=== PATIENT | female | born 1990 | race Caucasian/White ===

== ENCOUNTER → 2017-11-22 | Outpatient (REF) | payer BC ==
[2017-11-22 13:29] LABS: FOLLICLE STIMULATING HORMONE 6.1 mIU/mL; LUTEINIZING HORMONE 8.5 mIU/mL
[2017-11-22 13:35] LABS: FREE T4 0.97 NG/DL (0.76-1.46)
[2017-11-22 15:34] LABS: CHLAMYDIA DNA AMPLIFICATION NEGATIVE (NEGATIVE); GC DNA AMPLIFICATION NEGATIVE (NEGATIVE)
[2017-11-24 00:07] LABS: TESTOSTERONE FREE (DIRECT) 4.9 pg/mL (0.0-4.2)
== END ==
LOC: M SFHCWAGY 10:02
DX: Z12.4 Encounter for screening for malignant neoplasm of cervix (principal); N92.6 Irregular menstruation, unspecified; L68.0 Hirsutism; R53.83 Other fatigue; E66.01 Morbid (severe) obesity due to excess calories; Z11.3 Encounter for screening for infections with a predominantly sexual mode of transmission
CPT/HCPCS: 83001

== ENCOUNTER → 2019-03-14 | Outpatient (REF) | payer OTHER | LOC: M SFHCLERA 19:42 | PROVIDERS: ATTEND Nurse Practitioner Family | DX: J02.9 Acute pharyngitis, unspecified (principal) ==

== ENCOUNTER → 2019-10-10 | Outpatient (CLI) | payer OTHER ==
[2019-10-10] VITALS (8 sets, daily range): BP systolic 130–141; BP diastolic 64–90
[~2019-10-10] VITALS: Ht 160 cm; Wt 109.7 kg
[~2019-10-10] MED LIST: ACETAMINOPHEN TAB 650MG DOSE (2X325MG) PO ONE; diphenhydrAMINE 50 MG CAP PO ONE
== END ==
LOC: M INFU 08:36
PROVIDERS: ATTEND Internal Medicine Medical Oncology
DX: D59.5 Paroxysmal nocturnal hemoglobinuria [Marchiafava-Micheli] (principal)
CPT/HCPCS: 36430; P9016

== ENCOUNTER 2019-10-20 11:15 | Outpatient (CLI) | payer OTHER ==
[~2019-10-20] VITALS: Ht 162.6 cm; Wt 109.7 kg
[~2019-10-20 11:15] MED LIST changes: -ACETAMINOPHEN TAB 650MG DOSE (2X325MG) PO ONE; +ACETAMINOPHEN TAB 650MG DOSE (2X325MG) PO SCH; +diphenhydrAMINE 25 MG CAP PO SCH; -diphenhydrAMINE 50 MG CAP PO ONE
[2019-10-20 11:59] VITALS: BP 130/76
[2019-10-20 12:32] VITALS: BP 130/76
[2019-10-20 12:50] VITALS: BP 110/62
[2019-10-20 14:00] VITALS: BP 136/69
[2019-10-20 14:30] VITALS: BP 128/60
== END 2019-10-20 14:50 | disposition home or self-care (01) ==
LOC: M INFU 11:15
PROVIDERS: ATTEND Internal Medicine Medical Oncology
DX: D59.5 Paroxysmal nocturnal hemoglobinuria [Marchiafava-Micheli] (principal)
CPT/HCPCS: 36430; P9016

== ENCOUNTER 2019-10-28 11:38 | Outpatient (CLI) | payer OTHER ==
[2019-10-28] VITALS (9 sets, daily range): BP systolic 115–140; BP diastolic 58–79
[~2019-10-28] VITALS: Ht 162.6 cm; Wt 112.9 kg
[2019-10-29] MEDS ORDERED: JADE1TAB2 PO (16:22)
== END 2019-10-28 16:20 | disposition home or self-care (01) ==
LOC: M INFU 11:38
PROVIDERS: ATTEND Internal Medicine Medical Oncology
DX: D59.9 Acquired hemolytic anemia, unspecified (principal); D64.9 Anemia, unspecified
CPT/HCPCS: 36430; P9016

== ENCOUNTER 2019-11-10 14:03 | Outpatient (CLI) | payer OTHER ==
[~2019-11-10] VITALS: Ht 162.6 cm; Wt 112.9 kg
[~2019-11-10 14:03] MED LIST changes: +JADE1TAB2 PO
[2019-11-10 15:25] VITALS: BP 157/91
[2019-11-10 15:45] VITALS: BP 140/74
[2019-11-10 16:45] VITALS: BP 133/78
[2019-11-10 17:27] VITALS: BP 131/84
== END 2019-11-10 17:30 | disposition home or self-care (01) ==
LOC: M INFU 14:03
PROVIDERS: ATTEND Internal Medicine Medical Oncology
DX: D69.6 Thrombocytopenia, unspecified (principal)
CPT/HCPCS: 36430; P9016

== ENCOUNTER 2019-11-14 15:16 | Emergency (ER) | payer MEDICAID, OTHER ==
[~2019-11-14] VITALS: Ht 160 cm; Wt 111.6 kg
[~2019-11-14 15:16] MED LIST changes: -ACETAMINOPHEN TAB 650MG DOSE (2X325MG) PO SCH; -diphenhydrAMINE 25 MG CAP PO SCH
[2019-11-14 17:54] LABS: EOS % 0.3 % (0.0-3.0); HEMATOCRIT 25.2 % (36.0-47.0); HEMOGLOBIN 8.5 g/dl (12.0-15.5); LYMPH # 1.3 10^3/uL (1.5-5.0); LYMPH % 41.5 % (24.0-44.0); MEAN CORPUSCULAR HEMOGLOBIN 32.3 pg (27.0-33.0); MEAN CORPUSCULAR HGB CONC 33.7 g/dl (32.0-36.5); MEAN CORPUSCULAR VOLUME 95.8 fl (80.0-96.0); MONO # 0.1 10^3/uL (0.0-0.8); MONO % 3.3 % (0.0-5.0); NEUTROPHILS # 1.6 10^3/uL (1.5-8.5); NEUTROPHILS % 53.9 % (36.0-66.0); RED BLOOD COUNT 2.63 10^6/uL (4.00-5.40)
[2019-11-14 18:05] LABS: INR 1.1; PROTHROMBIN TIME 13.9 SECONDS (11.8-14.0)
[2019-11-14 18:06] LABS: PARTIAL THROMBOPLASTIN TIME 27.6 SECONDS (25.0-38.4)
[2019-11-14 18:08] LABS: D-DIMER QUANT 716.73 ng/ml (<500)
[2019-11-14 18:19] LABS: ALBUMIN 3.9 GM/DL (3.2-5.2); BILIRUBIN,DIRECT 0.3 MG/DL (0.0-0.2); BILIRUBIN,TOTAL 1.1 MG/DL (0.2-1.0); C REACTIVE PROTEIN QUANTITATIV 1.65 MG/DL (0.00-0.30); TOTAL PROTEIN 7.4 GM/DL (6.4-8.2)
[2019-11-14 18:22] LABS: ERYTHROCYTE SEDIMENTATION RATE 61 mm/hr (0-20); PLATELET COUNT, AUTOMATED 29 10^3/uL (150-450)
--- NOTE | 2019-11-14 18:22 | REPVR ---
PROCEDURE INFORMATION: Exam: US Duplex Left Upper Extremity Veins, Limited Exam date and time: 11/14/2019 5:42 PM Age: 29 years old Clinical indication: Pain; Arm, upper; Left; Additional info: Left arm pain after transfusion TECHNIQUE: Imaging protocol: Real-time Duplex ultrasound of the Left Upper Extremity with 2-D burnham scale, color Doppler flow and spectral waveform analysis with image documentation. Limited exam focused on the left upper extremity veins. COMPARISON: No relevant prior studies available. FINDINGS: Left deep veins: Unremarkable. Axillary and brachial veins are patent throughout without thrombus. Normal Doppler waveforms. Normal compressibility and/or augmentation response. Visualized internal jugular and subclavian veins are patent. Left superficial veins: Unremarkable. Visualized cephalic and basilic veins are patent without thrombus. Soft tissues: Unremarkable. IMPRESSION: No acute findings. No evidence of deep vein thrombosis. Electronically signed by: Renate Nolen On 11/14/2019 18:22:27 PM
[2019-11-14] MEDS ORDERED: ISOVUE-370 76% 100ML VIAL (Q9967) As Ordered ONE (18:52)
--- NOTE | 2019-11-14 19:52 | REPVR ---
PROCEDURE INFORMATION: Exam: CT Angiography Chest With Contrast Exam date and time: 11/14/2019 7:32 PM Age: 29 years old Clinical indication: Pain; Other: Chest tightness; Additional info: Left arm pain/chest tightness TECHNIQUE: Imaging protocol: Computed tomographic angiography of the chest with intravenous contrast. 3D rendering: MIP and/or 3D reconstructed images were created by the technologist. Radiation optimization: All CT scans at this facility use at least one of these dose optimization techniques: automated exposure control; mA and/or kV adjustment per patient size (includes targeted exams where dose is matched to clinical indication); or iterative reconstruction. Contrast material: ISOVUE 370; Contrast volume: 75 ml; Contrast route: IV; COMPARISON: No relevant prior studies available. FINDINGS: Pulmonary arteries: Normal. No pulmonary emboli. Aorta: Unremarkable. No aortic aneurysm. No aortic dissection. Lungs: Thin linear pleural based opacity apical segment left upper lobe. Thin linear reticular opacity right middle lobe. Both these opacities have the appearance of scarring Pleural space: Unremarkable. No pneumothorax. No pleural effusion. Heart: Unremarkable. No cardiomegaly. No pericardial effusion. Liver: The liver is low in density. Lymph nodes: Unremarkable. No enlarged lymph nodes. Bones/joints: Unremarkable. No acute fracture. Soft tissues: Unremarkable. IMPRESSION: 1. No acute pulmonary embolism. No aortic aneurysm or dissection. 2. Hepatic steatosis the Electronically signed by: Renate Nolen On 11/14/2019 19:52:02 PM
[2019-11-14 21:28] VITALS: BP 135/81
== END 2019-11-14 21:32 | disposition home or self-care (01) ==
LOC: M ED 15:16
DX: M79.602 Pain in left arm (principal); K76.0 Fatty (change of) liver, not elsewhere classified; R00.2 Palpitations; R51 Headache; D59.5 Paroxysmal nocturnal hemoglobinuria [Marchiafava-Micheli]
CPT/HCPCS: 36415; 71275; 80047; 80076; 83605; 84702; 85025; 85049; 85055; 85379; 85610; 85652; 85730; 86140; 93971; 99284; Q9967

== ENCOUNTER 2019-11-18 09:51 | Outpatient (CLI) | payer OTHER ==
[~2019-11-18] VITALS: Ht 161.9 cm; Wt 114.1 kg
[2019-11-18] VITALS (8 sets, daily range): BP systolic 118–142; BP diastolic 65–77
[~2019-11-18 09:51] MED LIST changes: +ACETAMINOPHEN TAB 650MG DOSE (2X325MG) PO SCH; +diphenhydrAMINE 25 MG CAP PO SCH
== END 2019-11-18 14:05 | disposition home or self-care (01) ==
LOC: M INFU 09:51
PROVIDERS: ATTEND Internal Medicine Hematology
DX: D59.9 Acquired hemolytic anemia, unspecified (principal)
CPT/HCPCS: 36430; P9016

== ENCOUNTER 2019-11-27 13:45 | Outpatient (CLI) | payer OTHER ==
[~2019-11-27] VITALS: Ht 160 cm; Wt 110.0 kg
[~2019-11-27 13:45] MED LIST changes: -ACETAMINOPHEN TAB 650MG DOSE (2X325MG) PO SCH; +JADE1TAB3 PO; -diphenhydrAMINE 25 MG CAP PO SCH
[2019-11-27 13:55] VITALS: BP 153/79
[2019-11-27] MEDS ORDERED: ACETAMINOPHEN TAB 650MG DOSE (2X325MG) PO ONE (14:00)
[2019-11-27] MEDS ORDERED: diphenhydrAMINE 50 MG CAP PO ONE (14:00)
[2019-11-27 14:30] VITALS: BP 153/79
[2019-11-27 14:45] VITALS: BP 127/63
[2019-11-27 15:45] VITALS: BP 137/67
[2019-11-27 16:17] VITALS: BP 134/64
== END 2019-11-27 16:15 | disposition home or self-care (01) ==
LOC: M INFU 13:45
PROVIDERS: ATTEND Internal Medicine Medical Oncology
DX: D59.5 Paroxysmal nocturnal hemoglobinuria [Marchiafava-Micheli] (principal)
CPT/HCPCS: 36430; P9016

== ENCOUNTER → 2020-01-01 | Outpatient (CLI) | payer OTHER, MEDICAID ==
[2020-01-01 09:05] LABS: EOS % 0.4 % (0.0-3.0); HEMOGLOBIN 7.3 g/dl (12.0-15.5); LYMPH % 76.6 % (24.0-44.0); MEAN CORPUSCULAR HEMOGLOBIN 31.3 pg (27.0-33.0); MEAN CORPUSCULAR HGB CONC 34.8 g/dl (32.0-36.5); MEAN CORPUSCULAR VOLUME 90.1 fl (80.0-96.0); MONO % 1.2 % (0.0-5.0); NEUTROPHILS % 21.8 % (36.0-66.0); RED BLOOD COUNT 2.33 10^6/uL (4.00-5.40); WHITE BLOOD COUNT 2.6 10^3/uL (4.0-10.0)
[2020-01-01 09:09] LABS: NEUTROPHILS # 0.6 10^3/uL (1.5-8.5); PLATELET COUNT, AUTOMATED 22 10^3/uL (150-450)
== END ==
LOC: M LAB 08:25
PROVIDERS: ATTEND Internal Medicine Medical Oncology
DX: D69.6 Thrombocytopenia, unspecified (principal)

== ENCOUNTER → 2020-01-05 | Outpatient (CLI) | payer OTHER, MEDICAID ==
[~2020-01-05] MED LIST changes: +C-50CHW5 PO; +ZARX0.05 SC
[2020-01-05 09:12] LABS: EOS % 0.9 % (0.0-3.0); HEMOGLOBIN 7.4 g/dl (12.0-15.5); LYMPH # 1.7 10^3/uL (1.5-5.0); LYMPH % 77.6 % (24.0-44.0); MEAN CORPUSCULAR HEMOGLOBIN 31.2 pg (27.0-33.0); MEAN CORPUSCULAR HGB CONC 35.6 g/dl (32.0-36.5); MEAN CORPUSCULAR VOLUME 87.8 fl (80.0-96.0); MONO % 1.3 % (0.0-5.0); NEUTROPHILS % 19.8 % (36.0-66.0); RED BLOOD COUNT 2.37 10^6/uL (4.00-5.40); WHITE BLOOD COUNT 2.2 10^3/uL (4.0-10.0)
[2020-01-05 09:13] LABS: HEMATOCRIT 20.8 % (36.0-47.0); PLATELET COUNT, AUTOMATED 8 10^3/uL (150-450)
[2020-01-05 09:14] LABS: NEUTROPHILS # 0.4 10^3/uL (1.5-8.5)
== END ==
LOC: M LAB 08:46
PROVIDERS: ATTEND Internal Medicine Medical Oncology
DX: D69.6 Thrombocytopenia, unspecified (principal)

== ENCOUNTER → 2020-01-08 | Outpatient (CLI) | payer OTHER, MEDICAID ==
[2020-01-08 09:11] LABS: EOS % 0.4 % (0.0-3.0); HEMOGLOBIN 7.3 g/dl (12.0-15.5); LYMPH # 2.2 10^3/uL (1.5-5.0); LYMPH % 86.4 % (24.0-44.0); MEAN CORPUSCULAR HEMOGLOBIN 30.7 pg (27.0-33.0); MEAN CORPUSCULAR HGB CONC 34.9 g/dl (32.0-36.5); MEAN CORPUSCULAR VOLUME 87.8 fl (80.0-96.0); MONO % 1.2 % (0.0-5.0); RED BLOOD COUNT 2.38 10^6/uL (4.00-5.40); WHITE BLOOD COUNT 2.6 10^3/uL (4.0-10.0)
[2020-01-08 09:16] LABS: NEUTROPHILS # 0.3 10^3/uL (1.5-8.5); PLATELET COUNT, AUTOMATED 12 10^3/uL (150-450)
[2020-01-08 09:17] LABS: HEMATOCRIT 20.9 % (36.0-47.0)
== END ==
LOC: M LAB 08:30
PROVIDERS: ATTEND Internal Medicine Medical Oncology
DX: D69.6 Thrombocytopenia, unspecified (principal)

== ENCOUNTER → 2020-01-12 | Outpatient (CLI) | payer OTHER, MEDICAID ==
[2020-01-12 08:50] LABS: EOS % 0.4 % (0.0-3.0); HEMATOCRIT 23.2 % (36.0-47.0); HEMOGLOBIN 8.1 g/dl (12.0-15.5); LYMPH # 2.1 10^3/uL (1.5-5.0); LYMPH % 84.5 % (24.0-44.0); MEAN CORPUSCULAR HEMOGLOBIN 29.9 pg (27.0-33.0); MEAN CORPUSCULAR HGB CONC 34.9 g/dl (32.0-36.5); MEAN CORPUSCULAR VOLUME 85.6 fl (80.0-96.0); MONO % 1.6 % (0.0-5.0); NEUTROPHILS % 13.5 % (36.0-66.0); RED BLOOD COUNT 2.71 10^6/uL (4.00-5.40); WHITE BLOOD COUNT 2.5 10^3/uL (4.0-10.0)
[2020-01-12 08:52] LABS: NEUTROPHILS # 0.3 10^3/uL (1.5-8.5); PLATELET COUNT, AUTOMATED 6 10^3/uL (150-450)
== END ==
LOC: M LAB 08:24
PROVIDERS: ATTEND Internal Medicine Medical Oncology
DX: D59.5 Paroxysmal nocturnal hemoglobinuria [Marchiafava-Micheli] (principal)

== ENCOUNTER 2020-01-15 10:21 | Outpatient (CLI) | payer OTHER, MEDICAID ==
[~2020-01-15] VITALS: Ht 162.6 cm; Wt 109.5 kg
[~2020-01-15 10:21] MED LIST changes: +ACETAMINOPHEN TAB 650MG DOSE (2X325MG) PO SCH; +diphenhydrAMINE 25MG CAP PO SCH
[2020-01-15 10:25] VITALS: BP 138/63
[2020-01-15 12:50] VITALS: BP 111/54
[2020-01-15 13:55] VITALS: BP 103/54
[2020-01-15 14:45] VITALS: BP 126/59
[2020-01-15 16:00] VITALS: BP 121/63
[2020-01-15 16:12] VITALS: BP 121/63
== END 2020-01-15 16:00 | disposition home or self-care (01) ==
LOC: M INFU 10:21
PROVIDERS: ATTEND Internal Medicine Medical Oncology
DX: D69.6 Thrombocytopenia, unspecified (principal); D64.9 Anemia, unspecified
CPT/HCPCS: 36430; 86920; P9016; P9036

== ENCOUNTER → 2020-01-15 | Outpatient (CLI) | payer OTHER, MEDICAID ==
[2020-01-15 08:58] LABS: EOS % 0.5 % (0.0-3.0); LYMPH # 1.7 10^3/uL (1.5-5.0); LYMPH % 86.1 % (24.0-44.0); MEAN CORPUSCULAR HEMOGLOBIN 29.7 pg (27.0-33.0); MEAN CORPUSCULAR HGB CONC 34.7 g/dl (32.0-36.5); MEAN CORPUSCULAR VOLUME 85.6 fl (80.0-96.0); NEUTROPHILS % 11.4 % (36.0-66.0); RED BLOOD COUNT 2.22 10^6/uL (4.00-5.40)
[2020-01-15 10:03] LABS: HEMOGLOBIN 6.6 g/dl (12.0-15.5); NEUTROPHILS # 0.2 10^3/uL (1.5-8.5); PLATELET COUNT, AUTOMATED 5 10^3/uL (150-450)
== END ==
LOC: M LAB 08:18
PROVIDERS: ATTEND Internal Medicine Medical Oncology
DX: D69.6 Thrombocytopenia, unspecified (principal)

== ENCOUNTER 2020-03-12 12:52 | Emergency (ER) | payer OTHER ==
[~2020-03-12] VITALS: Ht 160 cm; Wt 113.9 kg
[~2020-03-12 12:52] MED LIST changes: -ACETAMINOPHEN TAB 650MG DOSE (2X325MG) PO SCH; -diphenhydrAMINE 25MG CAP PO SCH
[2020-03-12 13:49] LABS: HEMATOCRIT 24.8 % (36.0-47.0); HEMOGLOBIN 8.8 g/dl (12.0-15.5); MEAN CORPUSCULAR HEMOGLOBIN 29.4 pg (27.0-33.0); MEAN CORPUSCULAR HGB CONC 35.5 g/dl (32.0-36.5); MEAN CORPUSCULAR VOLUME 82.9 fl (80.0-96.0); RED BLOOD COUNT 2.99 10^6/uL (4.00-5.40); WHITE BLOOD COUNT 1.5 10^3/uL (4.0-10.0)
[2020-03-12 13:50] LABS: PLATELET COUNT, AUTOMATED 5 10^3/uL (150-450)
[2020-03-12] MEDS ORDERED: CYCL25CA5 PO (13:56)
[2020-03-12] MEDS ORDERED: ACYC1CAP20 PO (13:56)
[2020-03-12] MEDS ORDERED: DIFL200T PO (13:56)
[2020-03-12] MEDS ORDERED: LEVO500T3 PO (13:56)
[2020-03-12] MEDS ORDERED: ATOV1TAB PO (13:56)
[2020-03-12] MEDS ORDERED: VITATAB74 PO (13:56)
[2020-03-12] MEDS ORDERED: PROM75TA2 PO (13:56)
[2020-03-12] MEDS ORDERED: FAMO20TA PO (13:56)
[2020-03-12 14:03] LABS: BLAST CELLS 2 % (0-0); LYMPHOCYTES 91 % (16-44); NEUTROPHILS 7 % (28-66)
[2020-03-12 14:04] LABS: PLATELET ESTIMATE MARKED DECREASE (NORMAL)
[2020-03-12 14:11] LABS: ALBUMIN 3.3 GM/DL (3.2-5.2); BILIRUBIN,DIRECT 0.9 MG/DL (0.0-0.2); TOTAL PROTEIN 6.7 GM/DL (6.4-8.2)
[2020-03-12 14:31] LABS: BILIRUBIN,TOTAL 2.7 MG/DL (0.2-1.0)
--- NOTE | 2020-03-12 15:58 | REP ---
Clinical: Fever and elevated bilirubin levels. Technique: Real time burnham scale ultrasound examination using curved array transducer. Findings: The liver includes 2.2 x 1.9 x 1.4 cm echogenic mass along the dome of the right hepatic lobe and 1.5 x 1.2 x 1.3 cm echogenic mass within the posterior segment of the right lobe which may represent hemangiomas. The pancreas is incompletely evaluated due to interposed bowel gas but visualized portions appear normal. The gallbladder suggests small amount of sludge without wall thickening or pericholecystic fluid. No biliary ductal dilatation appreciated and the common bile duct measures 2.9 mm diameter. The right kidney is normal in reniform shape and appearance measuring 10.9 x 4.8 x 5.3 cm. No hydronephrosis. No ascites in the visualized right upper quadrant. Impression: 1. Echogenic foci within the right lobe of the liver are nonspecific but likely represent hemangiomas. 2. Small amount of layering sludge in the gallbladder without sonographic evidence for acute cholecystitis. Electronically Signed by Ryan Barrow MD 03/12/2020 03:49 P
[2020-03-12 16:04] VITALS: BP 140/85
== END 2020-03-12 16:15 | disposition home or self-care (01) ==
LOC: M ED 12:52
DX: K80.50 Calculus of bile duct without cholangitis or cholecystitis without obstruction (principal); M54.5 Low back pain; R50.9 Fever, unspecified